=== PATIENT | male | born 1945 | race Caucasian/White ===

== ENCOUNTER → 2024-02-20 12:45 | Outpatient (CLI) | payer OTHER, SELFPAY | LOC: RESP 12:47 | PROVIDERS: Referring Provider Chiropractor; Visit Provider Chiropractor | DX: J44.9 Chronic obstructive pulmonary disease, unspecified (principal); Z87.891 Personal history of nicotine dependence; R94.2 Abnormal results of pulmonary function studies; I10 Essential (primary) hypertension | CPT/HCPCS: 94060 ==

== ENCOUNTER → 2024-02-20 12:48 | Outpatient (CLI) | payer OTHER, SELFPAY ==
--- NOTE | 2024-02-20 12:49 | DI.RAD.S_ITS ---
PROCEDURE: XR CHEST 2V INDICATIONS: COPD TECHNIQUE: 2 views of the chest were acquired. COMPARISON: None. FINDINGS: Surgical changes and devices: None. Lungs and pleura: Lungs are clear. No pleural effusions or pneumothorax. Mediastinum: Mediastinal contours are normal. Heart size is normal. Bones and chest wall: No suspicious bony abnormalities. Soft tissues appear unremarkable. IMPRESSION: No acute cardiopulmonary abnormality is seen. Dictated by: Jordan Celis M.D. on 02/20/2024 at 15:36 Approved by: Jordan Celis M.D. on 02/20/2024 at 15:36
--- NOTE | 2024-02-20 12:49 | DI.ECHO.S_ITS ---
[facility]+ [facility] : : [address] : [place] : : [id number] : : Phone: [phone] Echocardiogram Report + + :Name: KAY BECK Study Date: 02/20/2024 Height: 70 in : :Hospital ReadingLocation: Weight: 303 lb : : Gender: Male BSA: 2.5 m2 : :: 1945 Age: 79 yrs BP: 114/70 mmHg: :Reason For Study: COPD : :Ordering Physician: CHANDLER, : :MICHELLE Performed By: Precious Moralez : :Referring: MICHELLE ARTEAGA : + + Interpretation Summary The left ventricle is normal in size. Left ventricular systolic function appears normal without focal wall motion abnormalities. The ejection fraction is estimated to be 55-60%. LVEF has not changed. Diastolic function could not be accurately assessed due to atrial fibrillation. The right ventricle is mildly dilated. The right ventricular systolic function is normal. The right ventricular systolic pressure is estimated to be at least 34 mmHg based on an estimated right atrial pressure of 3 mm Hg. RVSP slightly decreased since prior study. The left atrium is severely dilated. The right atrium is moderately dilated. There is mild mitral regurgitation. Procedure: A two-dimensional transthoracic echocardiogram with color flow and Doppler was performed. The study quality was technically adequate. Comparison is made with the echocardiogram of 08/28/2023. The patient was in atrial fibrillation with heart rates between 92-125 bpm during the exam. Left Ventricle: The left ventricle is normal in size. Left ventricular wall thickness is mildly increased. Left ventricular systolic function appears normal without focal wall motion abnormalities. The ejection fraction is estimated to be 55-60%. Diastolic function could not be accurately assessed due to atrial fibrillation. Right Ventricle: The right ventricle is mildly dilated. The right ventricular systolic function is normal. Atria: The left atrium is severely dilated. The right atrium is moderately dilated. There is no Doppler evidence for an interatrial shunt. Mitral Valve: The mitral valve leaflets appear to open well. There is mild mitral regurgitation. Aortic Valve: The aortic valve is trileaflet. The aortic valve opens well. There is no aortic valve stenosis. No aortic regurgitation is present. Tricuspid Valve: The tricuspid valve leaflets are thin and pliable. There is mild tricuspid regurgitation. The right ventricular systolic pressure is estimated to be at least 34 mmHg based on an estimated right atrial pressure of 3 mm Hg. Pulmonic Valve: The pulmonic valve leaflets are thin and pliable; valve motion is normal. There is mild pulmonic regurgitation. Great Vessels: The aortic root is normal size. The dimensions of the ascending aorta are normal. The IVC is of normal diameter and collapses greater than 50% with a sniff. This suggests a low right atrial pressure of 3 mm Hg. Pericardium/ Pleura There is no pericardial effusion. There is no pleural effusion. MMode/2D Measurements & Calculations LVIDd: 4.8 cm LVOT diam: 2.3 cm LVIDs: 3.5 cm Ao root diam: 3.2 cm FS: 28.0 % asc Aorta Diam: 3.5 cm EPSS: 0.71 cm IVSd: 1.3 cm LVPWd: 0.99 cm LV rowe. diameter/BSA (cm/m^2): 1.9 LV sys. diameter/BSA (cm/m^2): 1.4 LA A2 area: 34.9 cm2 RA long axis: 7.3 cm LA A4 area: 35.2 cm2 RA area: 32.4 cm2 LA length (vol): 7.6 cm RA vol: 122.8 ml LA vol: 137.5 ml RA : 49.3 ml/m2 LA vol index: 55.2 ml/m2 IVC diam: 1.7 cm RVD1 (basal): 4.5 cm TAPSE: 2.5 cm Doppler Measurements & Calculations Ao V2 max: 135.2 cm/sec LVOT Max Ok: 95.7 cm/sec Ao V2 mean: 96.8 cm/sec LV V1 max P.7 mmHg Ao max P.3 mmHg LV V1 VTI: 16.5 cm Ao mean P.1 mmHg KAYLA(I,D): 2.7 cm2 Ao V2 VTI: 24.1 cm KAYLA(V,D): 2.8 cm2 sev ratio: 0.68 KAYLA indexed to BSA (cm^2/m^2): 1.1 MV E max ko: 94.4 cm/sec TR max ko: 278.5 cm/sec MV A max ko: 1.5 cm/sec TR max P.0 mmHg MV E/A: 62.8 PA V2 max: 105.6 cm/sec Med Peak E' Ko: 14.0 cm/sec PA V2 mean: 76.8 cm/sec E/E' med: 6.7 PA mean P.5 mmHg Lat Peak E' Ko: 14.2 cm/sec PA pr(Accel): 43.0 mmHg E/E' lat: 6.7 E/e' average: 6.7 MV dec time: 0.12 sec SV(LVOT): 65.9 ml Reading Physician:01:06 AM
== END ==
PROVIDERS: Referring Provider Chiropractor; Visit Provider Chiropractor
DX: I08.1 Rheumatic disorders of both mitral and tricuspid valves (principal); J44.9 Chronic obstructive pulmonary disease, unspecified; I10 Essential (primary) hypertension; Z87.891 Personal history of nicotine dependence; R94.2 Abnormal results of pulmonary function studies
CPT/HCPCS: 71046; 93306; 94060